=== PATIENT | female | born 1965 | race American Indian/Alaskan Native ===

== ENCOUNTER 2017-09-12 12:23 | Emergency (ER) | payer BC ==
[2017-09-12 12:40] VITALS: BMI 63.8
[2017-09-12] MEDS ORDERED: Sodium Chloride 0.9% 1,000 ML IV STA (12:41)
--- NOTE | 2017-09-12 12:45 | ED PDOC ---
Arrival/HPI - General Chief Complaint: Abdominal Pain Time Seen by Provider: 09/12/17 12:30 Historian: Patient - History of Present Illness Time/Duration: Other (3 days) Symptom Onset: Gradual Symptom Course: Worsening Quality: Aching Severity Level: Moderate Activities at Onset: Rest Associated Symptoms (Text): 09/12/17 12:42 Patient complains of a 3 day history of generalized abdominal pain. There is nausea but no vomiting or diarrhea. No radiation of the pain. No genitourinary symptoms. No fever or chills. No injury or trauma. No travel or exposure. She had a similar episode approximately one month ago which resolved spontaneously. She doesn't appear ill or uncomfortable. Family/Social History - Physician Review Nursing Documentation Reviewed: Yes Family/Social History: Unknown Family HX Smoking Status: Never Smoked Hx Alcohol Use: Yes Frequency of alcohol use: Socially Hx Substance Use: No Allergies/Home Meds Allergies/Adverse Reactions: Allergies No Known Allergies Allergy (Unverified 09/12/17 12:41) Review of Systems - Physician Review All systems were reviewed & negative as marked: Yes - Review of Systems Constitutional: Normal Respiratory: Normal Cardiovascular: Normal Gastrointestinal: Abdominal Pain, Nausea, Anorexia. absent: Constipation, Diarrhea, Vomiting Skin: Normal Neurological: Normal Physical Exam Vital Signs Temp Pulse Resp BP Pulse Ox 09/12/17 12:44 98.6 F 75 18 148/89 100 Temperature: Afebrile Blood Pressure: Normal Pulse: Regular Respiratory Rate: Normal Appearance: Positive for: Well-Appearing, Non-Toxic, Uncomfortable Pain Distress: Mild Mental Status: Positive for: Alert and Oriented X 3 - Systems Exam Head: Present: Atraumatic, Normocephalic Pupils: Present: PERRL Extroacular Muscles: Present: EOMI Conjunctiva: Present: Normal Mouth: Present: Moist Mucous Membranes Pharnyx: No: ERYTHEMA, EXUDATE, TONSILS ENLARGED Neck: Present: Normal Range of Motion Respiratory/Chest: Present: Clear to Auscultation, Good Air Exchange. No: Respiratory Distress, Accessory Muscle Use Cardiovascular: Present: Regular Rate and Rhythm, Normal S1, S2. No: Murmurs Abdomen: Present: Tenderness (Mild generalized tenderness with no guarding and no rebound), Normal Bowel Sounds. No: Distention, Peritoneal Signs, Rebound, Guarding Back: Present: Normal Inspection. No: CVA Tenderness, Midline Tenderness, Paraspinal Tenderness Upper Extremity: Present: Normal Inspection. No: Cyanosis, Edema Lower Extremity: Present: Normal Inspection. No: Edema Neurological: Present: GCS=15, CN II-XII Intact, Speech Normal, Motor Func Grossly Intact Skin: Present: Warm, Dry, Normal Color. No: Rashes Psychiatric: Present: Alert, Oriented x 3, Normal Insight, Normal Concentration Medical Decision Making ED Course and Treatment: 09/12/2017 15:21 Abd/Pelvis CT IMPRESSION: No acute findings. Dictator: Will Angel MD 09/12/17 15:26 Symptoms are markedly improved. Workup is unrevealing. Patient will be discharged home to follow up with her PMD in [place]. Follow up in the ER as needed. She needs a note for work today. - Lab Interpretations Lab Results: 09/12/17 13:56 09/12/17 13:56 Lab Results 09/12/17 13:56: Sodium 143, Potassium 4.7, Chloride 103, Carbon Dioxide 29, Anion Gap 16, BUN 9, Creatinine 0.8, Est GFR ( Amer) > 60, Est GFR (Non- Af Amer) > 60, Random Glucose 101, Calcium 10.1, Total Bilirubin 0.4, AST 17, ALT 26, Alkaline Phosphatase 99, Total Protein 8.0, Albumin 4.5, Globulin 3.5, Albumin/Globulin Ratio 1.3, Lipase 108 09/12/17 13:56: Urine Color Yellow, Urine Appearance Clear, Urine pH 6.0, Ur Specific [place] 1.020, Urine Protein Negative, Urine Glucose (UA) Negative, Urine Ketones Negative, Urine Blood Trace-intact H, Urine Nitrate Negative, Urine Bilirubin Negative, Urine Urobilinogen 0.2, Ur Leukocyte Esterase Negative , Urine RBC 0 - 2, Urine WBC 0 - 2, Ur Epithelial Cells 6 - 8, Urine Bacteria Many 09/12/17 13:56: WBC 8.0, RBC 4.54, Hgb 12.2, Hct 37.7, MCV 83.0, MCH 26.9, MCHC 32.4, RDW 14.0, Plt Count 463 H, MPV 9.4, Gran % 58.3, Lymph % (Auto) 35.5 H, [place] % (Auto) 4.3, Eos % (Auto) 1.6, Baso % (Auto) 0.3, Gran # 4.66, Lymph # 2.8 , [place] # 0.3, Eos # 0.1, Baso # 0.02 - RAD Interpretation Radiology Orders: 09/12/17 12:41 ABD & PELVIS W/O PO OR IV CONT [CT] Stat CT scan of the abdomen and pelvis is read by the radiologist shows no acute findings. Nursing Manager: Radiologist - Medication Orders Current Medication Orders: Discontinued Medications Sodium Chloride (Sodium Chloride 0.9%) 1,000 mls @ 1,000 mls/hr IV .Q1H STA Stop: 09/12/17 13:40 Last Admin: 09/12/17 12:57 Dose: 1,000 mls/hr eMAR Start Stop Document 09/12/17 12:57 NH (Rec: 09/12/17 12:57 [place] [id number]) Intravenous Solution Start Date 09/12/17 Start Time 12:57 Ketorolac Tromethamine (Toradol) 30 mg IVP STAT STA Stop: 09/12/17 12:42 Last Admin: 09/12/17 12:57 Dose: 30 mg MAR Pain Assessment Document 09/12/17 12:57 NH (Rec: 09/12/17 12:[id number] Pain Reassessment Is this a pain reassessment? No Sleep Is patient sleeping during reassessment? No Presence of Pain Presence of Pain Yes Pain Scale Used Pain Scale Used Numeric Location Upper or Lower Lower Pain Location Body Site Abdomen Description Description Cramping Pain Behavior Restlessness Facial Grimacing Alleviating Factors Medication IVP Administration Document 09/12/17 12:57 NH (Rec: 09/12/17 12:[id number]) Charges for Administration # of IVP Administrations 1 Ondansetron HCl (Zofran Inj) 4 mg IVP STAT STA Stop: 09/12/17 12:42 Last Admin: 09/12/17 12:57 Dose: 4 mg IVP Administration Document 09/12/17 12:57 NH (Rec: 09/12/17 12:57 [place] [id number]) Charges for Administration # of IVP Administrations 1 Pantoprazole Sodium (Protonix Inj) 40 mg IVP STAT STA Stop: 09/12/17 12:42 Last Admin: 09/12/17 12:57 Dose: 40 mg IVP Administration Document 09/12/17 12:57 PA (Rec: 09/12/17 12:57 [place] [id number]) Charges for Administration # of IVP Administrations 1 Disposition/Present on Arrival - Present on Arrival Any Indicators Present on Arrival: No History of DVT/PE: No History of Uncontrolled Diabetes: No Urinary Catheter: No History of Decub. Ulcer: No - Disposition Have Diagnosis and Disposition been Completed?: Yes Diagnosis: Abdominal pain Disposition: HOME/ ROUTINE Disposition Time: 15:27 Patient Plan: Discharge Patient Problems: Current Active Problems Problem Status Onset Abdominal pain Acute Condition: GOOD Discharge Instructions (ExitCare): Abdominal Pain (ED) Prescriptions: Pantoprazole Sodium [Protonix] 40 mg PO DAILY #20 ect Ondansetron [Zofran Odt] 4 mg SL Q6 #20 odt Forms: [employer] (Thai), WORK NOTE
[2017-09-12 12:50] VITALS: RESP 18; TEMP 98.6; O2SAT 100
[2017-09-12 14:11] LABS: BASO # 0.02 K/mm3 (0.0-2.0); BASO % 0.3 % (0.0-3.0); EOS # 0.1 (0.0-0.7); EOS % 1.6 % (1.5-5.0); GRAN # 4.66 (1.4-6.5); GRAN % 58.3 % (50.0-68.0); HEMATOCRIT 37.7 % (36.0-48.0); LYMPH # 2.8 (1.2-3.4); LYMPH % 35.5 % (22.0-35.0); MEAN CORPUSCULAR HEMOGLOBIN 26.9 pg (25.0-35.0); MEAN CORPUSCULAR HGB CONC 32.4 g/dl (31.0-37.0); MEAN PLATELET VOLUME 9.4 fl (7.0-11.0); MONO # 0.3 (0.1-0.6); MONO % 4.3 % (1.0-6.0); URINE BILIRUBIN NEGATIVE (NEGATIVE); URINE BLOOD TRACE-INTACT (NEGATIVE); URINE GLUCOSE (UA) NEGATIVE (NEGATIVE); URINE KETONE NEGATIVE (NEGATIVE); URINE LEUKOCYTE ESTERASE NEGATIVE Leu/uL (NEGATIVE); URINE PROTEIN NEGATIVE mg/dL (<30 mg/dL); URINE UROBILINOGEN 0.2 E.U./dL (<1 E.U./dL)
[2017-09-12 14:14] LABS: ALB/GLOB RATIO 1.3 (1.1-1.8); ALKALINE PHOSPHATASE 99 U/L (38-126); ALT/SGPT 26 U/L (7-56); AST/SGOT 17 U/L (14-36); BILIRUBIN,TOTAL 0.4 mg/dL (0.2-1.3); BLOOD UREA NITROGEN 9 mg/dL (7-21); CALCIUM 10.1 mg/dL (8.4-10.5); CARBON DIOXIDE 29 mmol/L (21-33); CHLORIDE 103 mmol/L (98-107); GFR AFRICAN-AMERICAN > 60; GLUCOSE,RANDOM 101 mg/dL (70-110); LIPASE 108 U/L (23-300); POTASSIUM 4.7 mmol/L (3.6-5.0); SODIUM 143 mmol/L (132-148)
[2017-09-12 14:24] LABS: URINE APPEARANCE CLEAR (CLEAR); URINE COLOR YELLOW (YELLOW)
[2017-09-12 14:27] LABS: URINE BACTERIA MANY (NEG); URINE RBC 0 - 2 /hpf (0-2); URINE WBC 0 - 2 /hpf (0-6)
--- NOTE | 2017-09-12 15:22 | CT ---
PROCEDURE: CT Abdomen and Pelvis without intravenous contrast HISTORY: pain COMPARISON: None. TECHNIQUE: Without contrast.. Contrast Dose: Radiation dose: Total exam DLP = 795 mGy-cm. This CT exam was performed using one or more of the following dose reduction techniques: Automated exposure control, adjustment of the mA and/or kV according to patient size, and/or use of iterative reconstruction technique. FINDINGS: LOWER THORAX: Unremarkable. LIVER: Unremarkable. No gross lesion or ductal dilatation. GALLBLADDER AND BILE DUCTS: Unremarkable. PANCREAS: Unremarkable. No gross lesion or ductal dilatation. SPLEEN: Unremarkable. ADRENALS: Unremarkable. No mass. KIDNEYS AND URETERS: Unremarkable. No hydronephrosis. No solid mass. VASCULATURE: Unremarkable. No aortic aneurysm. BOWEL: Unremarkable. No obstruction. No gross mural thickening. APPENDIX: Unremarkable. Normal appendix. PERITONEUM: Unremarkable. No free fluid. No free air. LYMPH NODES: Unremarkable. No enlarged lymph nodes. BLADDER: Unremarkable. REPRODUCTIVE: Unremarkable. BONES: No acute fracture. OTHER FINDINGS: None. IMPRESSION: No acute findings
[2017-09-12 15:56] VITALS: BP 136/72; PULSE 71
== END 2017-09-12 15:55 | disposition home or self-care (01) ==
LOC: ED 12:23
DX: R10.9 Unspecified abdominal pain (principal)
CPT/HCPCS: 74176; 80053; 81001; 83690; 85025; 96374; 96375; 99284; C9113; J1885; J2405; J7040

== ENCOUNTER 2018-01-04 15:41 | Emergency (ER) | payer BC ==
[2018-01-04 15:42] VITALS: BMI 63.8
--- NOTE | 2018-01-04 15:50 | ED PDOC ---
"Arrival/HPI - General Chief Complaint: Abdominal Pain Time Seen by Provider: 01/04/18 15:49 Historian: Patient - History of Present Illness Narrative History of Present Illness (Text): 01/04/18 15:50 52 y/o female, pmh including hyperlipidemia/dm, nkda, c/o abdominal pain with nausea x 5 days. Pt. stated that she has been having lower abdominal near periumbilical pain x 5 days, associated with nausea at home, couple episodes of vomiting, stated that she doesn't feel well, pain on and off, non-radiating, no night sweat, no dizziness, no rash, no numbness or tingling, no chest pain or any other medical or psychological complaints. Past Medical History - Provider Review Nursing Documentation Reviewed: Yes - Infectious Disease Hx of Infectious Diseases: None - Reproductive Menopause: Yes - Pulmonary Hx Respiratory Disorders: No - Neurological Hx Neurological Disorder: No - HEENT Hx HEENT Disorder: No - Renal Hx Renal Disorder: No - Endocrine/Metabolic Hx Diabetes Mellitus Type 2: Yes - Hematological/Oncological Hx Blood Disorders: No - Integumentary Hx Dermatological Disorder: No - Musculoskeletal/Rheumatological Hx Musculoskeletal Disorders: No - Gastrointestinal Hx Gastrointestinal Disorders: No - Genitourinary/Gynecological Hx Genitourinary Disorders: No - Psychiatric Hx Psychophysiologic Disorder: No Hx Substance Use: No - Surgical History Hx Hysterectomy: Yes Other/Comment: cyst removal from right breast - Anesthesia Hx Anesthesia: No Hx Anesthesia Reactions: No - Suicidal Assessment Feels Threatened In Home Enviroment: No Family/Social History - Physician Review Nursing Documentation Reviewed: Yes Family/Social History: Unknown Family HX Smoking Status: Never Smoked Hx Alcohol Use: Yes Hx Substance Use: No Allergies/Home Meds Allergies/Adverse Reactions: Allergies No Known Allergies Allergy (Verified 01/04/18 15:48) Home Medications: Home Meds Medication Instructions Recorded Confirmed MetFORMIN [glucOPHAGE] 500 mg PO BID 01/04/18 01/04/18 Simvastatin [Zocor] 40 mg PO DAILY 01/04/18 01/04/18 Review of Systems - Review of Systems Constitutional: absent: Fatigue, Fevers Eyes: absent: Vision Changes ENT: absent: Hearing Changes Respiratory: absent: SOB, Cough Cardiovascular: absent: Chest Pain Gastrointestinal: Abdominal Pain, Nausea, Vomiting. absent: Diarrhea Musculoskeletal: absent: Arthralgias, Back Pain Skin: absent: Rash, Pruritis Neurological: absent: Headache, Dizziness Psychiatric: absent: Anxiety, Depression Physical Exam Vital Signs Reviewed: Yes Vital Signs Temp Pulse Resp BP Pulse Ox 01/04/18 19:35 98.1 F 80 18 146/78 98 01/04/18 17:06 75 18 118/71 100 01/04/18 15:50 98.2 F 80 16 121/76 100 Temperature: Afebrile Blood Pressure: Normal Pulse: Regular Respiratory Rate: Normal Appearance: Positive for: Well-Appearing, Non-Toxic, Comfortable Pain Distress: Moderate Mental Status: Positive for: Alert and Oriented X 3 - Systems Exam Head: Present: Atraumatic, Normocephalic Pupils: Present: PERRL Extroacular Muscles: Present: EOMI Conjunctiva: Present: Normal Mouth: Present: Moist Mucous Membranes Neck: Present: Normal Range of Motion Respiratory/Chest: Present: Clear to Auscultation, Good Air Exchange. No: Respiratory Distress, Accessory Muscle Use Cardiovascular: Present: Regular Rate and Rhythm, Normal S1, S2. No: Murmurs Abdomen: Present: Tenderness (periumbilical ), Normal Bowel Sounds. No: Distention, Peritoneal Signs, Rebound, Guarding Back: Present: Normal Inspection. No: CVA Tenderness, Midline Tenderness, Paraspinal Tenderness Upper Extremity: Present: Normal Inspection. No: Cyanosis, Edema Lower Extremity: Present: Normal Inspection. No: Edema Neurological: Present: GCS=15, Speech Normal, Motor Func Grossly Intact, Gait Normal, Memory Normal Skin: Present: Warm, Dry, Normal Color. No: Rashes Psychiatric: Present: Alert, Oriented x 3, Normal Insight, Normal Concentration Medical Decision Making ED Course and Treatment: 01/04/18 16:08 -labs/ua/rapid flu -CT abdomen and pelvis -Transvaginal sonogram -IVF/pepcid/reglan -Observe and reassess 01/04/18 20:15 -Pt. requested pain med, morphine 4mg IV ordered as I am pending for the CT, thought about toradol but not sure if it's surgical. 01/04/18 21:11 -Transvaginal sonogram: Status post hysterectomy. Bilateral sub cm ovarian cysts. Large pelvic free fluid predominantly within the right pelvis/adnexal region of unclear etiology. Recommend further evaluation on CT of the abdomen and pelvis scheduled to follow. -CT abdomen and pelvis: There is a collection of fluid is identified within the pelvis posteriorly. Some of this fluid surrounds a small bowel loop. This is new compared to the prior CT. Follow-up CT is recommended. There is mild gaseous and fecal distention of the colon. Mild wall thickening is visualized of the sigmoid colon, consistent with incomplete distention or colitis. There is a mildly enlarged left extra iliac chain lymph node measuring 1.3 cm in length. This is stable in retrospect, and nonspecific as to etiology. There is a small errol-fissural lung nodule within the right upper lobe measuring 2 mm on series 5 image 3. This is new. A nonemergent chest CT suggested. -Labs are non-significant -UA show no UTI -Rapid flu is negative -Pt. feels better, discussed with Dr. Vergara and he is evaluating the patient physically at the bed side. 01/04/18 21:30 -Dr. Vergara examined the patient, suggest to discharge home with pepcid as the patient is able to have bowel movement today at home. -Discharge home with pepcid, stay hydrated, bed rest, high fiber diet, follow up with your own pmd/GI within 2 days, return to the ER for any new or worsening signs or symptoms. - Lab Interpretations Lab Results: 01/04/18 17:00 01/04/18 17:00 Lab Results 01/04/18 19:35: Urine Color Yellow, Urine Appearance Clear, Urine pH 8.0, Ur Specific [place] 1.015, Urine Protein Negative, Urine Glucose (UA) Negative, Urine Ketones Negative, Urine Blood Negative, Urine Nitrate Negative, Urine Bilirubin Negative, Urine Urobilinogen 1.0 H, Ur Leukocyte Esterase Negative 01/04/18 17:00: Influenza Typ A,B (EIA) Negative for flu a/b 01/04/18 17:00: WBC 10.4 D, RBC 4.39, Hgb 11.7 L, Hct 36.8, MCV 83.8, MCH 26.7 , MCHC 31.8, RDW 14.2, Plt Count 435, MPV 9.8, Gran % 57.0, Lymph % (Auto) 36.1 H, [place] % (Auto) 5.3, Eos % (Auto) 1.2 L, Baso % (Auto) 0.4, Gran # 5.95, Lymph # (Auto) 3.8 H, [place] # (Auto) 0.6, Eos # (Auto) 0.1, Baso # (Auto) 0.04 01/04/18 17:00: Sodium 140, Potassium 5.0, Chloride 104, Carbon Dioxide 24, Anion Gap 17, BUN 9, Creatinine 0.9, Est GFR ( Amer) > 60, Est GFR (Non- Af Amer) > 60, Random Glucose 100, Calcium 10.0, Magnesium 2.0, Total Bilirubin 0.7, AST 49 H D, ALT 19, Alkaline Phosphatase 98, Total Protein 8.1, Albumin 4.2 , Globulin 3.9, Albumin/Globulin Ratio 1.1, Lipase 120 - RAD Interpretation Radiology Orders: 01/04/18 16:04 ABD & PELVIS IV CONTRAST ONLY [CT] Stat TRANSVAGINAL [US] Stat Transvaginal: Indication: Lower abdominal pain Comparison: CT abdomen and pelvis without oral or IV contrast performed Technique: Real-time transabdominal pelvic ultrasound was performed. In addition a transvaginal pelvic ultrasound was necessary to better depict pelvic anatomy. Findings: The patient is status post hysterectomy. The right ovary measures approximately 2.9 x 3.3 x 1.8 cm and contains 1.1 cm cyst. Blood flow is demonstrated to the right ovary. The left ovary measures approximately 2.6 x 2.6 x 1.3 cm and contains approximately 1.4 cm cyst. Blood flow is demonstrated to the left ovary. Large pelvic free fluid is evident predominantly within the right pelvis/ adnexal region of unclear etiology. Impression: Status post hysterectomy. Bilateral sub cm ovarian cysts. Large pelvic free fluid predominantly within the right pelvis/adnexal region of unclear etiology. Recommend further evaluation on CT of the abdomen and pelvis scheduled to follow. CT abdomen and pelvis: FINDINGS: Lower thorax: There is a small errol-fissural lung nodule within the right upper lobe measuring 2 mm on series 5 image 3. This is new. ABDOMEN: Liver: No mass. Gallbladder and bile ducts: No calcified stones. No ductal dilation. Pancreas: Normal contour, without acute peripancreatic stranding. Spleen: No splenomegaly. Adrenals: No mass. Kidneys and ureters: No hydronephrosis. No solid mass. EVELYN MCGARRY | Final Radiology Report CONFIDENTIALITY STATEMENT This report is intended only for use by the referring physician, and only in accordance with law. If you received this in error, call [phone]. Page 2 of 2 Stomach and bowel: There is mild gaseous and fecal distention of the colon. Mild wall thickening is visualized of the sigmoid colon, consistent with incomplete distention or colitis. Appendix: No findings to suggest acute appendicitis. PELVIS: Bladder: No mass. Reproductive: The uterus is absent. ABDOMEN and PELVIS: Intraperitoneal space: There is a collection of fluid is identified within the pelvis posteriorly. Some of this fluid surrounds a small bowel loop. This is new compared to the prior CT. This fluid measures approximately 6.9 x 5.9 x 5.5 cm. No well-defined wall is visualized surrounding this fluid to suggest abscess. Bones/joints: Significant sclerotic changes are visualized within the bone marrow adjacent to the pubic symphysis. There is sclerotic bilaterally sacroiliac arthropathy. Hypertrophic degenerative changes are noted within the spine. There is mild convexity of the lumbar spine to the left. Soft tissues: There is mild stable herniation of fat into the umbilicus. Vasculature: No abdominal aortic aneurysm. Lymph nodes: There is a mildly enlarged left extra iliac chain lymph node measuring 1.3 cm in length. This is stable in retrospect, and nonspecific as to etiology. No significant retroperitoneal lymphadenopathy. Small mesenteric lymph nodes are seen, without significant mesenteric lymphadenopathy. IMPRESSION: 1. There is a collection of fluid is identified within the pelvis posteriorly. Some of this fluid surrounds a small bowel loop. This is new compared to the prior CT. Follow-up CT is recommended. 2. There is mild gaseous and fecal distention of the colon. Mild wall thickening is visualized of the sigmoid colon, consistent with incomplete distention or colitis. 3. There is a mildly enlarged left extra iliac chain lymph node measuring 1.3 cm in length. This is stable in retrospect, and nonspecific as to etiology. 4. There is a small errol-fissural lung nodule within the right upper lobe measuring 2 mm on series 5 image 3. This is new. A nonemergent chest CT suggested. 5. Additional CT findings described above. Thank you for allowing us to participate in the care of your patient. Dictated and Authenticated by: Gee Roberts MD 01/04/2018 8:36 PM Eastern Time ([place] & A[place]) Metal Room Dental Technician: Radiologist - Medication Orders Current Medication Orders: Discontinued Medications Famotidine (Pepcid) 20 mg IVP STAT STA Stop: 01/04/18 16:05 Last Admin: 01/04/18 17:48 Dose: 20 mg IVP Administration Document 01/04/18 17:48 GMD (Rec: 01/04/18 17:48 GMD [id number]) Charges for Administration # of IVP Administrations 1 Sodium Chloride (Sodium Chloride 0.9%) 1,000 mls @ 999 mls/hr IV .Q1H1M STA Stop: 01/04/18 17:04 Last Admin: 01/04/18 17:48 Dose: 999 mls/hr eMAR Start Stop Document 01/04/18 17:48 GMD (Rec: 01/04/18 17:48 GMD [id number]) Intravenous Solution Start Date 01/04/18 Start Time 17:48 End Date 01/04/18 End time 18:49 Total Infusion Time 61 Metoclopramide HCl (Reglan) 10 mg IVP STAT STA Stop: 01/04/18 16:05 Last Admin: 01/04/18 17:48 Dose: 10 mg IVP Administration Document 01/04/18 17:48 GMD (Rec: 01/04/18 17:48 GMD [id number]) Charges for Administration # of IVP Administrations 1 Morphine Sulfate (Morphine) 4 mg IVP STAT STA Stop: 01/04/18 19:22 Last Admin: 01/04/18 19:40 Dose: 4 mg MAR Pain Assessment Document 01/04/18 19:40 YP (Rec: 01/04/18 19:40 YP [id number]) Pain Reassessment Is this a pain reassessment? Yes Sleep Is patient sleeping during reassessment? No Presence of Pain Presence of Pain Yes IVP Administration Document 01/04/18 19:40 YP (Rec: 01/04/18 19:40 YP [id number]) Charges for Administration # of IVP Administrations 1 - PA / ASSISTANT ADMINISTRATOR / Resident Statement MD/DO has reviewed & agrees with the documentation as recorded. Disposition/Present on Arrival - Present on Arrival Any Indicators Present on Arrival: No History of DVT/PE: No History of Uncontrolled Diabetes: No Urinary Catheter: No History of Decub. Ulcer: No History Surgical Site Infection Following: None - Disposition Have Diagnosis and Disposition been Completed?: Yes Diagnosis: Ovarian cyst, Abdominal pain, Lung nodule, Abnormal CT scan Disposition: HOME/ ROUTINE Disposition Time: 16:08 Patient Plan: Discharge Patient Problems: Current Active Problems Problem Status Onset Abdominal pain Acute Ovarian cyst Acute Lung nodule Acute Abnormal CT scan Acute Condition: IMPROVED Additional Instructions: -Discharge home with pepcid, stay hydrated, bed rest, high fiber diet, follow up with your own pmd/GI within 2 days, return to the ER for any new or worsening signs or symptoms. Prescriptions: Famotidine [Pepcid] 20 mg PO BID #20 tab Naproxen 500 mg PO BID PRN #22 tab PRN Reason: Other Referrals: Stephane Kaba MD [Staff Provider] - Follow up with primary Luis Fernando Villalobos MD [Staff Provider] - Follow up with primary Forms: WORK NOTE"
[2018-01-04] MEDS ORDERED: Sodium Chloride 0.9% 1,000 ML IV STA (16:04)
--- NOTE | 2018-01-04 17:02 | US ---
Indication: Lower abdominal pain Comparison: CT abdomen and pelvis without oral or IV contrast performed 09/12/17 Technique: Real-time transabdominal pelvic ultrasound was performed. In addition a transvaginal pelvic ultrasound was necessary to better depict pelvic anatomy. Findings: The patient is status post hysterectomy. The right ovary measures approximately 2.9 x 3.3 x 1.8 cm and contains 1.1 cm cyst. Blood flow is demonstrated to the right ovary. The left ovary measures approximately 2.6 x 2.6 x 1.3 cm and contains approximately 1.4 cm cyst. Blood flow is demonstrated to the left ovary. Large pelvic free fluid is evident predominantly within the right pelvis/adnexal region of unclear etiology. Impression: Status post hysterectomy. Bilateral sub cm ovarian cysts. Large pelvic free fluid predominantly within the right pelvis/adnexal region of unclear etiology. Recommend further evaluation on CT of the abdomen and pelvis scheduled to follow.
[2018-01-04 17:06] VITALS: RESP 18
[2018-01-04 17:44] LABS: BASO # 0.04 K/mm3 (0.0-2.0); BASO % 0.4 % (0.0-3.0); EOS # 0.1 (0.0-0.7); EOS % 1.2 % (1.5-5.0); GRAN # 5.95 (1.4-6.5); HEMOGLOBIN 11.7 g/dL (12.0-16.0); LYMPH # 3.8 (1.2-3.4); LYMPH % 36.1 % (22.0-35.0); MEAN CELL VOLUME 83.8 fl (80.0-105.0); MEAN CORPUSCULAR HEMOGLOBIN 26.7 pg (25.0-35.0); MEAN CORPUSCULAR HGB CONC 31.8 g/dl (31.0-37.0); MEAN PLATELET VOLUME 9.8 fl (7.0-11.0); MONO # 0.6 (0.1-0.6); MONO % 5.3 % (1.0-6.0); RBC 4.39 10^6/uL (3.5-6.1); RED CELL DISTRIBUTION WIDTH 14.2 % (11.5-14.5); WHITE BLOOD COUNT 10.4 10^3/ul (4.5-11.0)
[2018-01-04 17:55] LABS: GFR AFRICAN-AMERICAN > 60; GFR NON-AFRICAN AMERICAN > 60; LIPASE 120 U/L (23-300)
[2018-01-04 18:03] LABS: ALB/GLOB RATIO 1.1 (1.1-1.8); ALBUMIN 4.2 g/dL (3.0-4.8); ALT/SGPT 19 U/L (7-56); AST/SGOT 49 U/L (14-36); BLOOD UREA NITROGEN 9 mg/dL (7-21)
[2018-01-04] MEDS ORDERED: Iohexol 350 MG/100 ML VIAL ONE (18:28)
[2018-01-04] MEDS ORDERED: Morphine 4 mg/ml ISec IVP STA (19:21)
[2018-01-04 19:42] VITALS: TEMP 98.1
[2018-01-04 20:10] LABS: URINE BILIRUBIN NEGATIVE (NEGATIVE); URINE BLOOD NEGATIVE (NEGATIVE); URINE GLUCOSE (UA) NEGATIVE (NEGATIVE); URINE LEUKOCYTE ESTERASE NEGATIVE Leu/uL (NEGATIVE); URINE NITRATE NEGATIVE (NEGATIVE); URINE PROTEIN NEGATIVE mg/dL (<30 mg/dL)
[2018-01-04 20:13] LABS: URINE APPEARANCE CLEAR (CLEAR); URINE COLOR YELLOW (YELLOW)
--- NOTE | 2018-01-04 20:36 | CT ---
EXAM: CT Abdomen and Pelvis With Intravenous Contrast EXAM DATE/TIME: 01/04/2018 4:04 PM CLINICAL HISTORY: The patient age is 52 years old and is female; Pain; Abdominal pain; Localized; Other: Mid abdominal pain; Prior surgery; Surgery date: 6+ months; Surgery type: Hysterectomy; Additional info: Periumbilical pain x 5 days Facility exam id and description: Ct abdpelciv abd pelvis iv contrast only TECHNIQUE: Axial computed tomography images of the abdomen and pelvis with intravenous contrast. All CT scans at this facility use one or more dose reduction techniques, viz.: automated exposure control; ma/kV adjustment per patient size (including targeted exams where dose is matched to indication; i.e. head); or iterative reconstruction technique. Coronal and sagittal reformatted images were created and reviewed. CONTRAST: 100 mL of OMNIPAQUE 350 administered intravenously. COMPARISON: CT - ABD PELVIS W/O PO OR IV CONT 2017-09-12 14:53 FINDINGS: Lower thorax: There is a small errol-fissural lung nodule within the right upper lobe measuring 2 mm on series 5 image 3. This is new. ABDOMEN: Liver: No mass. Gallbladder and bile ducts: No calcified stones. No ductal dilation. Pancreas: Normal contour, without acute peripancreatic stranding. Spleen: No splenomegaly. Adrenals: No mass. Kidneys and ureters: No hydronephrosis. No solid mass. Stomach and bowel: There is mild gaseous and fecal distention of the colon. Mild wall thickening is visualized of the sigmoid colon, consistent with incomplete distention or colitis. Appendix: No findings to suggest acute appendicitis. PELVIS: Bladder: No mass. Reproductive: The uterus is absent. ABDOMEN and PELVIS: Intraperitoneal space: There is a collection of fluid is identified within the pelvis posteriorly. Some of this fluid surrounds a small bowel loop. This is new compared to the prior CT. This fluid measures approximately 6.9 x 5.9 x 5.5 cm. No well-defined wall is visualized surrounding this fluid to suggest abscess. Bones/joints: Significant sclerotic changes are visualized within the bone marrow adjacent to the pubic symphysis. There is sclerotic bilaterally sacroiliac arthropathy. Hypertrophic degenerative changes are noted within the spine. There is mild convexity of the lumbar spine to the left. Soft tissues: There is mild stable herniation of fat into the umbilicus. Vasculature: No abdominal aortic aneurysm. Lymph nodes: There is a mildly enlarged left extra iliac chain lymph node measuring 1.3 cm in length. This is stable in retrospect, and nonspecific as to etiology. No significant retroperitoneal lymphadenopathy. Small mesenteric lymph nodes are seen, without significant mesenteric lymphadenopathy. IMPRESSION: 1. There is a collection of fluid is identified within the pelvis posteriorly. Some of this fluid surrounds a small bowel loop. This is new compared to the prior CT. Follow-up CT is recommended. 2. There is mild gaseous and fecal distention of the colon. Mild wall thickening is visualized of the sigmoid colon, consistent with incomplete distention or colitis. 3. There is a mildly enlarged left extra iliac chain lymph node measuring 1.3 cm in length. This is stable in retrospect, and nonspecific as to etiology. 4. There is a small errol-fissural lung nodule within the right upper lobe measuring 2 mm on series 5 image 3. This is new. A nonemergent chest CT suggested. 5. Additional CT findings described above.
[2018-01-04 21:46] VITALS: BP 135/73; PULSE 76; O2SAT 99
== END 2018-01-04 21:46 | disposition home or self-care (01) ==
LOC: ED 15:41
DX: N83.201 Unspecified ovarian cyst, right side (principal); N83.202 Unspecified ovarian cyst, left side; R94.8 Abnormal results of function studies of other organs and systems; R91.1 Solitary pulmonary nodule; R10.33 Periumbilical pain; E11.9 Type 2 diabetes mellitus without complications; E78.5 Hyperlipidemia, unspecified
CPT/HCPCS: 74177; 76830; 80053; 81003; 83690; 83735; 85025; 87804; 96361; 96374; 96375; 99285; J2270; J2765; J7040; Q9967

== ENCOUNTER 2018-10-06 16:58 | Emergency (ER) | payer BC ==
[2018-10-06 17:14] VITALS: BP 157/85; PULSE 89; RESP 18; TEMP 98.6; O2SAT 100; BMI 29.7
--- NOTE | 2018-10-06 18:00 | ED PDOC ---
Arrival/HPI - General Chief Complaint: High Blood Pressure Time Seen by Provider: 10/06/18 17:01 Historian: Patient - History of Present Illness Narrative History of Present Illness (Text): 10/06/18 17:57 A 53 year old female with no significant past medical history presents to the emergency department complaining of high blood pressure since earlier today. Patient reports a coworker measured her blood pressure at work measuring to 190/170 prompting her to go to emergency room.. In the emergency room, blood pressure measurement was 149/78 which patient states is a normal range for her in her primary doctor's office. Patient denies any fever, chills, shortness of breath, chest pain, diarrhea, nausea, vomiting, urinary symptoms, back pain, neck pain, headache, dizziness, or any other complaints. Time/Duration: Other (earlier today) Symptom Onset: Gradual Symptom Course: Improving Activities at Onset: Light Context: Work Past Medical History - Provider Review Nursing Documentation Reviewed: Yes - Infectious Disease Hx of Infectious Diseases: None - Cardiac Hx Cardiac Disorders: Yes - Pulmonary Hx Respiratory Disorders: No - Neurological Hx Neurological Disorder: No - HEENT Hx HEENT Disorder: No - Renal Hx Renal Disorder: No - Endocrine/Metabolic Hx Endocrine Disorders: Yes Hx Diabetes Mellitus Type 2: Yes - Hematological/Oncological Hx Blood Disorders: No - Integumentary Hx Dermatological Disorder: No - Musculoskeletal/Rheumatological Hx Musculoskeletal Disorders: No - Gastrointestinal Hx Gastrointestinal Disorders: No - Genitourinary/Gynecological Hx Genitourinary Disorders: No - Psychiatric Hx Psychophysiologic Disorder: No Hx Substance Use: No - Surgical History Hx Hysterectomy: Yes Other/Comment: cyst removal from right breast - Anesthesia Hx Anesthesia: No Hx Anesthesia Reactions: No - Suicidal Assessment Feels Threatened In Home Enviroment: No Family/Social History - Physician Review Nursing Documentation Reviewed: Yes Family/Social History: Unknown Family HX Smoking Status: Never Smoked Hx Alcohol Use: Yes Frequency of alcohol use: Socially Hx Substance Use: No Allergies/Home Meds Allergies/Adverse Reactions: Allergies No Known Allergies Allergy (Verified 10/06/18 17:38) Home Medications: Home Meds Medication Instructions Recorded Confirmed MetFORMIN [glucOPHAGE] 500 mg PO BID 01/04/18 10/06/18 Simvastatin [Zocor] 40 mg PO DAILY 01/04/18 10/06/18 Dulaglutide [Trulicity] 10 mg INJ QWK 10/06/18 10/06/18 Review of Systems - Physician Review All systems were reviewed & negative as marked: Yes - Review of Systems Constitutional: absent: Fevers, Night Sweats Respiratory: absent: SOB Cardiovascular: absent: Chest Pain Gastrointestinal: absent: Diarrhea, Nausea, Vomiting Genitourinary Female: absent: Urine Output Changes Musculoskeletal: absent: Back Pain, Neck Pain Neurological: absent: Headache, Dizziness Physical Exam Vital Signs Reviewed: Yes Vital Signs Temp Pulse Resp BP Pulse Ox 10/06/18 17:11 98.6 F 89 18 157/85 H 100 Temperature: Afebrile Blood Pressure: Hypertensive Pulse: Regular Respiratory Rate: Normal Appearance: Positive for: Well-Appearing, Non-Toxic, Comfortable Pain Distress: None Mental Status: Positive for: Alert and Oriented X 3 - Systems Exam Head: Present: Atraumatic, Normocephalic Pupils: Present: PERRL Extroacular Muscles: Present: EOMI Conjunctiva: Present: Normal Mouth: Present: Moist Mucous Membranes Neck: Present: Normal Range of Motion Respiratory/Chest: Present: Clear to Auscultation, Good Air Exchange. No: Respiratory Distress, Accessory Muscle Use Cardiovascular: Present: Regular Rate and Rhythm, Normal S1, S2. No: Murmurs Abdomen: No: Tenderness, Distention, Peritoneal Signs Back: Present: Normal Inspection Upper Extremity: Present: Normal Inspection. No: Cyanosis, Edema Lower Extremity: Present: Normal Inspection. No: Edema Neurological: Present: GCS=15, CN II-XII Intact, Speech Normal Skin: Present: Warm, Dry, Normal Color. No: Rashes Psychiatric: Present: Alert, Oriented x 3, Normal Insight, Normal Concentration Medical Decision Making ED Course and Treatment: 10/06/18 17:51 Impression: 53 year old female presenting to the emergency room for high blood pressure. Plan: -- Reassess and disposition Prior Visits: Notes and results from previous visits were reviewed. Progress Notes: - Scribe Statement The provider has reviewed the documentation as recorded by the Linoibvikki Whalen All medical record entries made by the Scribe were at my direction and personally dictated by me. I have reviewed the chart and agree that the record accurately reflects my personal performance of the history, physical exam, medical decision making, and the department course for this patient. I have also personally directed, reviewed, and agree with the discharge instructions and disposition. Disposition/Present on Arrival - Present on Arrival Any Indicators Present on Arrival: No History of DVT/PE: No History of Uncontrolled Diabetes: No Urinary Catheter: No History of Decub. Ulcer: No History Surgical Site Infection Following: None - Disposition Have Diagnosis and Disposition been Completed?: Yes Diagnosis: Pre-hypertension Disposition: HOME/ ROUTINE Disposition Time: 17:40 Condition: GOOD Discharge Instructions (ExitCare): Prehypertension Additional Instructions: EVELYN MCGARRY, thank you for letting us take care of you today. The emergency medical care you received today was directed at your acute symptoms. If you were prescribed any medication, please fill it and take as directed. It may take several days for your symptoms to resolve. Return to the Emergency Department if your symptoms worsen, do not improve, or if you have any other problems. Please contact your doctor or call one of the physicians/clinics you have been referred to that are listed on the Patient Visit Information form that is included in your discharge packet. Bring any paperwork you were given at discharge with you along with any medications you are taking to your follow up visit. Our treatment cannot replace ongoing medical care by a primary care provider outside of the emergency department. Thank you for allowing the [facility] team to be part of your care today. Your blood pressure here was 149/78. Please follow up with your primary care doctor as scheduled next week for a repeat blood pressure check and further management. Referrals: [facility] Carbajal, [Non-Staff] - Follow up with primary Forms: [email or web address] ([place])
--- NOTE | 2018-10-07 09:41 | CARD ---
APPROVED REPORT Date of service: 10/06/2018 EKG Measurement Heart [id number] <Conclusion> Normal sinus rhythm Possible Left atrial enlargement Borderline ECG
== END 2018-10-06 18:21 | disposition home or self-care (01) ==
LOC: ED 16:58
DX: R03.0 Elevated blood-pressure reading, without diagnosis of hypertension (principal)